=== PATIENT | female | born 1995 | race Caucasian/White ===

== ENCOUNTER → 2021-08-01 | Outpatient (REF) | payer OTHER | LOC: M LAB REF 09:39 | PROVIDERS: ATTEND Physician Assistant | DX: R30.0 Dysuria (principal); J02.9 Acute pharyngitis, unspecified; Z20.828 Contact with and (suspected) exposure to other viral communicable diseases ==

== ENCOUNTER → 2021-10-30 | Outpatient (CLI) | payer OTHER ==
[2021-10-30 16:12] LABS: BASO # 0.1 10^3/uL (0.0-0.2); EOS # 0.1 10^3/uL (0.0-0.5); EOS % 1.5 % (0.0-3.0); HEMATOCRIT 39.3 % (36.0-47.0); HEMOGLOBIN 13.4 g/dl (12.0-15.5); LYMPH # 2.4 10^3/uL (1.5-5.0); LYMPH % 28.7 % (24.0-44.0); MEAN CORPUSCULAR HEMOGLOBIN 30.1 pg (27.0-33.0); MEAN CORPUSCULAR HGB CONC 34.1 g/dl (32.0-36.5); MEAN CORPUSCULAR VOLUME 88.3 fl (80.0-96.0); MONO # 0.5 10^3/uL (0.0-0.8); MONO % 5.9 % (2.0-8.0); NEUTROPHILS # 5.3 10^3/uL (1.5-8.5); NEUTROPHILS % 62.5 % (36.0-66.0); PLATELET COUNT, AUTOMATED 281 10^3/uL (150-450); RED BLOOD COUNT 4.45 10^6/uL (4.00-5.40); WHITE BLOOD COUNT 8.4 10^3/uL (4.0-10.0)
[2021-10-30 16:34] LABS: ALBUMIN 4.2 GM/DL (3.2-5.2); ALT/SGPT 28 U/L (12-78); BILIRUBIN,TOTAL 1.9 MG/DL (0.2-1.0); BLOOD UREA NITROGEN 8 MG/DL (7-18); CALCIUM LEVEL 9.1 MG/DL (8.5-10.1); CARBON DIOXIDE LEVEL 31 MEQ/L (21-32); CHLORIDE LEVEL 107 MEQ/L (98-107); CREATININE FOR GFR 0.86 MG/DL (0.55-1.30); GLOMERULAR FILTRATION RATE > 60.0 (>60); GLUCOSE, FASTING 89 MG/DL (70-100); SODIUM LEVEL 142 MEQ/L (136-145); TOTAL PROTEIN 7.3 GM/DL (6.4-8.2)
== END ==
LOC: M WUC 13:13
PROVIDERS: ATTEND Physician Assistant
DX: R53.83 Other fatigue (principal); J02.9 Acute pharyngitis, unspecified

== ENCOUNTER → 2022-06-03 | Outpatient (CLI) | payer BC, OTHER ==
[~2022-06-03] MED LIST: GASTROGRAFIN SOLUTION 30ML (Q9963) As Ordered ONE; ISOVUE-370 76% 100ML VIAL As Ordered ONE
[2022-06-03 14:11] LABS: BASO # 0.1 10^3/uL (0.0-0.2); BASO % 1.2 % (0.0-1.0); EOS # 0.3 10^3/uL (0.0-0.5); EOS % 2.9 % (0.0-3.0); HEMATOCRIT 40.9 % (36.0-47.0); HEMOGLOBIN 13.8 g/dl (12.0-15.5); LYMPH # 2.5 10^3/uL (1.5-5.0); LYMPH % 22.5 % (24.0-44.0); MEAN CORPUSCULAR HEMOGLOBIN 30.1 pg (27.0-33.0); MEAN CORPUSCULAR HGB CONC 33.7 g/dl (32.0-36.5); MEAN CORPUSCULAR VOLUME 89.1 fl (80.0-96.0); MONO # 0.5 10^3/uL (0.0-0.8); MONO % 4.2 % (2.0-8.0); NEUTROPHILS # 7.6 10^3/uL (1.5-8.5); NEUTROPHILS % 68.9 % (36.0-66.0); PLATELET COUNT, AUTOMATED 255 10^3/uL (150-450); RED BLOOD COUNT 4.59 10^6/uL (4.00-5.40)
[2022-06-03 15:04] LABS: ALBUMIN 4.2 GM/DL (3.2-5.2); ALT/SGPT 25 U/L (12-78); BILIRUBIN,TOTAL 1.6 MG/DL (0.2-1.0); BLOOD UREA NITROGEN 13 MG/DL (7-18); CALCIUM LEVEL 9.5 MG/DL (8.5-10.1); CARBON DIOXIDE LEVEL 29 MEQ/L (21-32); CHLORIDE LEVEL 106 MEQ/L (98-107); CREATININE FOR GFR 0.83 MG/DL (0.55-1.30); GLOMERULAR FILTRATION RATE > 60.0 (>60); GLUCOSE, FASTING 86 MG/DL (70-100); POTASSIUM SERUM 3.8 MEQ/L (3.5-5.1); SODIUM LEVEL 139 MEQ/L (136-145); TOTAL PROTEIN 7.4 GM/DL (6.4-8.2)
== END ==
LOC: M RAD 12:30
PROVIDERS: ATTEND Physician Assistant
DX: R10.814 Left lower quadrant abdominal tenderness (principal); R10.813 Right lower quadrant abdominal tenderness
CPT/HCPCS: 36415; 74178; 80053; 85025; Q9963; Q9967

== ENCOUNTER → 2022-10-30 | Outpatient (REF) | payer BC, OTHER | LOC: M WUC 09:17 | PROVIDERS: ATTEND Physician Assistant | DX: J02.9 Acute pharyngitis, unspecified (principal) ==

== ENCOUNTER → 2022-12-16 | Outpatient (CLI) | payer OTHER ==
[2022-12-16 13:39] LABS: HEMATOCRIT 38.1 % (36.0-47.0); HEMOGLOBIN 13.4 g/dl (12.0-15.5); MEAN CORPUSCULAR HEMOGLOBIN 31.4 pg (27.0-33.0); MEAN CORPUSCULAR HGB CONC 35.2 g/dl (32.0-36.5); MEAN CORPUSCULAR VOLUME 89.2 fl (80.0-96.0); PLATELET COUNT, AUTOMATED 157 10^3/uL (150-450); RED BLOOD COUNT 4.27 10^6/uL (4.00-5.40); WHITE BLOOD COUNT 11.3 10^3/uL (4.0-10.0)
[2022-12-16 14:12] LABS: HIV 1&2 SCREEN CENTAUR NEGATIVE (NEGATIVE)
[2022-12-16 14:20] LABS: HEPATITIS C VIRUS ABY INDEX < 0.0 INDEX (<0.8)
[2022-12-16 14:36] LABS: GC DNA AMPLIFICATION NEGATIVE (NEGATIVE)
== END ==
LOC: M PLALAB 10:10
PROVIDERS: ATTEND Specialist
DX: Z36.9 Encounter for antenatal screening, unspecified (principal)

== ENCOUNTER → 2022-12-16 | Outpatient (CLI) | payer OTHER | LOC: M WHC 09:51 | PROVIDERS: ATTEND Specialist | DX: Z34.02 Encounter for supervision of normal first pregnancy, second trimester (principal); Z53.9 Procedure and treatment not carried out, unspecified reason ==

== ENCOUNTER → 2023-01-19 | Outpatient (CLI) | payer OTHER | LOC: M WHC 06:47 | PROVIDERS: ATTEND Specialist | DX: Z34.02 Encounter for supervision of normal first pregnancy, second trimester (principal); Z3A.19 19 weeks gestation of pregnancy | CPT/HCPCS: 76811; G0463 ==

== ENCOUNTER → 2023-02-01 | Outpatient (REF) | payer OTHER | LOC: M LAB REF 17:53 | PROVIDERS: ATTEND Nurse Practitioner Adult Health | DX: R30.0 Dysuria (principal); N89.8 Other specified noninflammatory disorders of vagina ==

== ENCOUNTER → 2023-03-02 | Outpatient (REF) | payer OTHER ==
[2023-03-02 15:17] LABS: GC DNA AMPLIFICATION NEGATIVE (NEGATIVE)
== END ==
LOC: M SFHCWAGY 13:13
PROVIDERS: ATTEND Advanced Practice Midwife
DX: Z34.02 Encounter for supervision of normal first pregnancy, second trimester (principal)
CPT/HCPCS: 87086; 87810; 87850; G0463

== ENCOUNTER → 2023-03-03 | Outpatient (CLI) | payer OTHER ==
[2023-03-03 13:21] LABS: HEMATOCRIT 37.8 % (36.0-47.0); HEMOGLOBIN 13.1 g/dl (12.0-15.5); MEAN CORPUSCULAR HEMOGLOBIN 31.5 pg (27.0-33.0); MEAN CORPUSCULAR HGB CONC 34.7 g/dl (32.0-36.5); MEAN CORPUSCULAR VOLUME 90.9 fl (80.0-96.0); PLATELET COUNT, AUTOMATED 212 10^3/uL (150-450); RED BLOOD COUNT 4.16 10^6/uL (4.00-5.40); WHITE BLOOD COUNT 14.3 10^3/uL (4.0-10.0)
== END ==
LOC: M PLALAB 09:51
PROVIDERS: ATTEND Advanced Practice Midwife
DX: Z34.02 Encounter for supervision of normal first pregnancy, second trimester (principal)

== ENCOUNTER → 2024-04-21 | Outpatient (REF) | payer OTHER | LOC: M LAB REF 14:47 | PROVIDERS: ATTEND Nurse Practitioner Adult Health | DX: N76.0 Acute vaginitis (principal) ==

== ENCOUNTER → 2024-06-09 | Outpatient (CLI) | payer OTHER ==
[2024-06-09 08:44] LABS: BASO # 0.1 10^3/uL (0.0-0.2); BASO % 0.8 % (0.0-1.0); EOS # 0.2 10^3/uL (0.0-0.5); EOS % 2.8 % (0.0-3.0); HEMATOCRIT 39.2 % (36.0-47.0); LYMPH # 1.7 10^3/uL (1.5-5.0); LYMPH % 27.8 % (24.0-44.0); MEAN CORPUSCULAR HGB CONC 35.7 g/dl (32.0-36.5); MEAN CORPUSCULAR VOLUME 86.7 fl (80.0-96.0); MONO # 0.4 10^3/uL (0.0-0.8); MONO % 7.2 % (2.0-8.0); NEUTROPHILS # 3.7 10^3/uL (1.5-8.5); NEUTROPHILS % 61.2 % (36.0-66.0); PLATELET COUNT, AUTOMATED 306 10^3/uL (150-450); RED BLOOD COUNT 4.52 10^6/uL (4.00-5.40); WHITE BLOOD COUNT 6.1 10^3/uL (4.0-10.0)
[2024-06-09 09:09] LABS: HEMOGLOBIN A1c 4.8 % (4.0-6.0)
[2024-06-09 09:16] LABS: FREE T4 1.17 NG/DL (0.89-1.76); THYROID STIMULATING HORMONE 1.773 uIU/ML (0.55-4.78)
[2024-06-09 09:17] LABS: ALBUMIN 3.9 G/DL (3.2-5.2); ALKALINE PHOSPHATASE 59 U/L (46-116); ALT/SGPT 23 U/L (7.0-40); AST/SGOT 13 U/L (<34); BILIRUBIN,TOTAL 2.7 MG/DL (0.3-1.2); BLOOD UREA NITROGEN 13 MG/DL (9-23); CALCIUM LEVEL 9.4 MG/DL (8.5-10.1); CARBON DIOXIDE LEVEL 25 MMOL/L (20-31); CHLORIDE LEVEL 110 MMOL/L (98-107); CHOLESTEROL LEVEL 187 MG/DL (<200); CHOLESTEROL RISK RATIO 4.98 (<5); CREATININE FOR GFR 0.76 MG/DL (0.55-1.30); GLOMERULAR FILTRATION RATE > 60.0 (>60); GLUCOSE, FASTING 97 MG/DL (60-100); HDL CHOLESTEROL 37.5 MG/DL (>40); LDL CHOLESTEROL 134.7 MG/DL (<100); NON-HDL-C 149.5 MG/DL; POTASSIUM SERUM 4.1 MMOL/L (3.5-5.1); SODIUM LEVEL 139 MMOL/L (136-145); TOTAL PROTEIN 6.9 G/DL (5.7-8.2); TRIGLYCERIDES LEVEL 74 MG/DL (<150)
[2024-06-12 00:32] LABS: INSULIN TOTAL2 8.8 uIU/mL (<=18.4)
== END ==
LOC: M LAB 07:43
PROVIDERS: ATTEND Nurse Practitioner Adult Health
DX: E66.9 Obesity, unspecified (principal)

== ENCOUNTER → 2024-08-25 | Outpatient (CLI) | payer OTHER ==
[2024-08-25 13:39] LABS: HEMATOCRIT 39.3 % (36.0-47.0); HEMOGLOBIN 14.1 g/dl (12.0-15.5); MEAN CORPUSCULAR HEMOGLOBIN 30.5 pg (27.0-33.0); MEAN CORPUSCULAR HGB CONC 35.9 g/dl (32.0-36.5); MEAN CORPUSCULAR VOLUME 84.9 fl (80.0-96.0); PLATELET COUNT, AUTOMATED 298 10^3/uL (150-450); RED BLOOD COUNT 4.63 10^6/uL (4.00-5.40); WHITE BLOOD COUNT 11.2 10^3/uL (4.0-10.0)
[2024-08-25 13:41] LABS: LDH LACTATE DEHYDROGENASE 160 U/L (120-246)
[2024-08-25 13:42] LABS: ALT/SGPT 20 U/L (7.0-40); AST/SGOT 14 U/L (<34); BILIRUBIN,TOTAL 1.8 MG/DL (0.3-1.2); CREATININE FOR GFR 0.52 MG/DL (0.55-1.30); GLOMERULAR FILTRATION RATE > 60.0 (>60)
[2024-08-25 14:08] LABS: HIV 1&2 SCREEN NEGATIVE (NEGATIVE)
[2024-08-25 14:11] LABS: URIC ACID 3.8 MG/DL (3.1-7.8)
[2024-08-25 14:16] LABS: HEPATITIS C VIRUS ABY INDEX < 0.02 INDEX (<0.8)
== END ==
LOC: M PLALAB 09:55
PROVIDERS: ATTEND Nurse Practitioner Family
DX: Z34.80 Encounter for supervision of other normal pregnancy, unspecified trimester (principal)

== ENCOUNTER → 2024-08-25 | Outpatient (REF) | payer OTHER ==
[2024-08-25 13:50] LABS: CREATININE,RANDOM URINE 37.4 MG/DL
[2024-08-25 13:51] LABS: TOTAL PROTEIN,RANDOM URINE < 6.0 MG/DL (0.0-14.0)
[2024-08-25 14:48] LABS: GC DNA AMPLIFICATION NEGATIVE (NEGATIVE)
== END ==
LOC: M PLALAB 09:47
PROVIDERS: ATTEND Nurse Practitioner Family
DX: Z34.80 Encounter for supervision of other normal pregnancy, unspecified trimester (principal)

== ENCOUNTER → 2024-09-22 | Outpatient (CLI) | payer OTHER | LOC: M PLALAB 09:09 | PROVIDERS: ATTEND Obstetrics & Gynecology | DX: Z34.80 Encounter for supervision of other normal pregnancy, unspecified trimester (principal) ==

== ENCOUNTER → 2024-10-18 | Outpatient (REF) | payer OTHER ==
[2024-10-18 14:06] LABS: TOTAL PROTEIN,RANDOM URINE 9.2 MG/DL (0.0-14.0)
[2024-10-18 14:10] LABS: CREATININE,RANDOM URINE 102.4 MG/DL
== END ==
LOC: M SFHCWAGY 12:50
PROVIDERS: ATTEND Obstetrics & Gynecology
DX: O16.2 Unspecified maternal hypertension, second trimester (principal)

== ENCOUNTER → 2024-10-27 | Outpatient (CLI) | payer OTHER | LOC: M WHC 12:33 | PROVIDERS: ATTEND Obstetrics & Gynecology | DX: Z36.89 Encounter for other specified antenatal screening (principal) ==

== ENCOUNTER → 2024-12-12 | Outpatient (CLI) | payer OTHER | LOC: M WHC 14:47 | PROVIDERS: ATTEND Nurse Practitioner Family | DX: Z34.82 Encounter for supervision of other normal pregnancy, second trimester (principal) ==

== ENCOUNTER → 2024-12-13 | Outpatient (CLI) | payer OTHER ==
[2024-12-13 15:28] LABS: HEMATOCRIT 39.3 % (36.0-47.0); HEMOGLOBIN 13.4 g/dl (12.0-15.5); MEAN CORPUSCULAR HGB CONC 34.1 g/dl (32.0-36.5); PLATELET COUNT, AUTOMATED 273 10^3/uL (150-450); RED BLOOD COUNT 4.32 10^6/uL (4.00-5.40); WHITE BLOOD COUNT 12.5 10^3/uL (4.0-10.0)
[2024-12-13 15:29] LABS: GLUCOSE CHALLENGE TEST 1 HOUR 97 MG/DL (LESS THAN 140)
[2024-12-13 16:04] LABS: HIV 1&2 SCREEN NEGATIVE (NEGATIVE)
[2024-12-13 16:12] LABS: HEPATITIS C VIRUS ABY INDEX 0.02 INDEX (<0.8)
== END ==
LOC: M PLALAB 11:51
PROVIDERS: ATTEND Nurse Practitioner Family
DX: Z34.82 Encounter for supervision of other normal pregnancy, second trimester (principal)

== ENCOUNTER → 2024-12-20 | Outpatient (REF) | payer OTHER ==
[2024-12-20 14:13] LABS: Trichomonas vaginalis (AMP) NOT DETECTED (NEGATIVE)
[2024-12-20 14:36] LABS: GC DNA AMPLIFICATION NEGATIVE (NEGATIVE)
== END ==
LOC: M SFHCWAGY 12:43
PROVIDERS: ATTEND Nurse Practitioner Family
DX: Z34.82 Encounter for supervision of other normal pregnancy, second trimester (principal)

== ENCOUNTER 2025-03-08 07:54 | Inpatient (IN) | payer OTHER ==
[2025-03-08] VITALS (13 sets, daily range): BP systolic 114–160; BP diastolic 60–89
[~2025-03-08] VITALS: Ht 167.6 cm; Wt 107.8 kg
[2025-03-08] MEDS ORDERED: ECOT81TA5 PO (08:31)
[2025-03-08] MEDS ORDERED: PRENTAB9 PO (08:31)
[2025-03-08] MEDS ORDERED: OXYTOCIN DRIP 30 UNITS in IV 1 EA IV PRN (08:55)
[2025-03-08] MEDS ORDERED: CARBOPROST TROMETHAMINE 250 MCG/ML AMP IM PRN (08:55)
[2025-03-08] MEDS ORDERED: OXYTOCIN INJ 10UNITS/ML 1ML VIAL IM PRN (08:55)
[2025-03-08] MEDS ORDERED: LR 1,000 ML IV SCH ×2 (08:55→18:15)
[2025-03-08] MEDS ORDERED: LIDOCAINE 1% MDV 20 ML VIAL INFIL PRN (08:55)
[2025-03-08] MEDS ORDERED: OXYTOCIN INJ 10UNITS/ML 1ML VIAL IV PRN (08:55)
[2025-03-08] MEDS: miSOPROStol 50 MCG 1/2 TABLET PO PRN (09:18)
[2025-03-08 09:37] LABS: PLATELET COUNT, AUTOMATED 371 10^3/uL (150-450)
[2025-03-08 10:07] LABS: HIV 1&2 SCREEN NEGATIVE (NEGATIVE)
[2025-03-08 10:15] LABS: HEPATITIS C VIRUS ABY INDEX < 0.02 INDEX (<0.8)
[2025-03-08] MEDS: OXYTOCIN DRIP 30 UNITS in IV 1 EA IV SCH (19:30)
[2025-03-08] MEDS: LACTATED RINGER'S 1000 ML IV STA (19:30)
[2025-03-09] VITALS (15 sets, daily range): BP systolic 117–146; BP diastolic 58–97; O2SAT 98
[2025-03-09] MEDS ORDERED: RHOGAM 300MCG (1500IU) INJ IM SCH (03:35)
[2025-03-09] MEDS ORDERED: METHYLERGONOVINE MALEATE 0.2 MG TAB PO PRN (03:35)
[2025-03-09 03:47] LABS: CORD GAS ABE A -10.3; CORD GAS HCO3 A 16.9 MMOL/L; CORD GAS O2 SAT A 99.1 %; CORD GAS PCO2 A 42.0 mmHg; CORD GAS PH A 7.223 UNITS; CORD GAS PO2 A 107.4 mmHg; CORD GAS SBC A 16.7 MMOL/L; CORD GAS TCO2 A 18.2 MMOL/L
[2025-03-09 03:48] LABS: CORD GAS ABE V -6.9; CORD GAS HCO3 V 18.7 MMOL/L; CORD GAS O2 SAT V 92.5 %; CORD GAS PCO2 V 38.5 mmHg; CORD GAS PH V 7.305 UNITS; CORD GAS PO2 V 54.9 mmHg; CORD GAS SBC V 18.8 MMOL/L; CORD GAS TCO2 V 19.9 MMOL/L
[2025-03-09] MEDS: METHYLERGONOVINE MALEATE 0.2 MG/ML 1 ML VIAL IM PRN (04:12)
[2025-03-09] MEDS: OXYTOCIN DRIP 30 UNITS in IV 1 EA IV PRN (04:44)
[2025-03-09] MEDS: ACETAMINOPHEN 500 MG TAB PO PRN (04:45)
[2025-03-09] MEDS: IBUPROFEN 800 MG TAB PO PRN (04:45)
[2025-03-09] MEDS: TRANEXAMIC ACID INJection 1,000 MG in NS 100 ML IV PRN (05:02)
[2025-03-09] MEDS: ceFAZolin SODIUM 2 GM in DEXTROSE 5% (D5W) ADV/MINI-BAG 50 ML IV ONE (06:59)
[2025-03-09] MEDS: PRENATAL VITAMINS CHEWABLE TABLET PO SCH (08:55)
[2025-03-09] MEDS: DOCUSATE SODIUM 100 MG CAPSULE PO PRN (19:44)
[2025-03-09] MEDS: DIBUCAINE 1% OINTMENT 30 GM TOP PRN (19:44)
[2025-03-10 06:41] VITALS: BP 125/60; O2SAT 97
[2025-03-10 17:56] VITALS: BP_SYST 133; BP_SYST 135; BP_DIAS 73; BP_DIAS 79; O2SAT 96
[2025-03-11] MEDS ORDERED: MEASLES,MUMPS,RUBELLA VACCINE INJ (MMR-II) SC.IMMUN ONE (09:00)
== END 2025-03-10 18:10 | disposition home or self-care (01) | DRG 807 ==
LOC: M LDI 07:54 → M OBS 03-09 07:50
PROVIDERS: ADMIT Obstetrics & Gynecology; ATTEND Obstetrics & Gynecology
PROC: 3E033VJ Introduction of Other Hormone into Peripheral Vein, Percutaneous Approach (ICD-10-PCS; 2025-03-08)
PROC: 10E0XZZ Delivery of Products of Conception, External Approach (ICD-10-PCS; principal; 2025-03-09)
DX: O80 Encounter for full-term uncomplicated delivery (principal); Z37.0 Single live birth; Z3A.39 39 weeks gestation of pregnancy; Z88.0 Allergy status to penicillin; Z88.8 Allergy status to other drugs, medicaments and biological substances

== ENCOUNTER → 2025-03-29 | Outpatient (CLI) | payer OTHER ==
[~2025-03-29] MED LIST changes: +ECOT81TA5 PO; -GASTROGRAFIN SOLUTION 30ML (Q9963) As Ordered ONE; -ISOVUE-370 76% 100ML VIAL As Ordered ONE; +PRENTAB9 PO
[2025-03-29 17:02] LABS: BASO # 0.1 10^3/uL (0.0-0.2); BASO % 0.8 % (0.0-1.0); EOS # 0.3 10^3/uL (0.0-0.5); EOS % 3.3 % (0.0-3.0); LYMPH # 1.4 10^3/uL (1.5-5.0); LYMPH % 16.7 % (24.0-44.0); MONO # 0.6 10^3/uL (0.0-0.8); MONO % 7.0 % (2.0-8.0); NEUTROPHILS # 6.2 10^3/uL (1.5-8.5); NEUTROPHILS % 72.0 % (36.0-66.0); PLATELET COUNT, AUTOMATED 463 10^3/uL (150-450)
[2025-03-29 17:11] LABS: ERYTHROCYTE SEDIMENTATION RATE 21 mm/hr (0-20)
[2025-03-29 17:38] LABS: ALT/SGPT 25 U/L (7.0-40); AST/SGOT 20 U/L (<34); C REACTIVE PROTEIN QUANTITATIV 1.12 MG/DL (<1.0); CALCIUM LEVEL 9.0 MG/DL (8.5-10.1); CARBON DIOXIDE LEVEL 26 MMOL/L (20-31); CHLORIDE LEVEL 105 MMOL/L (98-107); CREATININE FOR GFR 0.85 MG/DL (0.55-1.30); GLOMERULAR FILTRATION RATE > 90.0 (>60); POTASSIUM SERUM 4.1 MMOL/L (3.5-5.1); SODIUM LEVEL 143 MMOL/L (136-145)
[2025-03-29 17:40] LABS: FREE T4 1.00 NG/DL (0.89-1.76)
== END ==
LOC: M PLALAB 15:12
PROVIDERS: ATTEND Nurse Practitioner Adult Health
DX: M25.50 Pain in unspecified joint (principal); R10.9 Unspecified abdominal pain; K59.00 Constipation, unspecified

== ENCOUNTER → 2025-04-24 | Outpatient (REF) | payer OTHER | LOC: M SFHCWAGY 12:37 | PROVIDERS: ATTEND Obstetrics & Gynecology | DX: R30.0 Dysuria (principal) ==

== ENCOUNTER → 2025-05-29 | Outpatient (CLI) | payer OTHER ==
[2025-05-29 15:01] LABS: ALT/SGPT 29.0 U/L (7.0-40); AST/SGOT 19.0 U/L (<34)
== END ==
LOC: M PLALAB 08:05
PROVIDERS: ATTEND Nurse Practitioner Adult Health
DX: R94.5 Abnormal results of liver function studies (principal)